=== PATIENT | male | born 1960 | race Caucasian/White ===

== ENCOUNTER 2023-01-12 06:35 | Day surgery (SDC) | payer BC, SELFPAY ==
[2023-01-12] VITALS (7 sets, daily range): BP systolic 103–120; BP diastolic 68–82; PULSE 53–67; RESP 16–18; TEMP 36.2–36.7; O2SAT 93–98; BMI 35.7
[2023-01-12] MEDS: Lactated Ringers 1,000 ML 15 ML IV (07:21)
--- NOTE | 2023-01-12 07:27 | DCINST_ITS ---
Discharge Instructions Diet Discharge Diet: No restrictions Follow Up Care Please Follow Up With: Hemal Judd MD Test Results: Test results from this visit will be discussed in further detail at your follow- up appointment, if applicable. Discharge Plan Admission Primary Reason for Your Visit: Placement of gold markers and spacer gel Attending Provider: Hemal Judd Primary Care Provider: Juan Meyer Discharge Orders/Prescriptions Prescriptions: New ciprofloxacin HCl [Cipro] 500 mg tablet 500 mg PO BID Qty: 10 0RF No Action allopurinol 100 mg tablet 100 mg PO DAILY multivitamin Tablet 1 tab PO DAILY Referrals / Follow Up: Juan Meyer MD [Primary Care Provider] - Hemal Judd MD [Med Staff - Active Staff] - Disposition Disposition (needs filled in before D/C Order can be placed): Home, Self Care
--- NOTE | 2023-01-12 07:27 | PCM.HP.STD ---
HPI - General General Date of Service: 01/12/23 Chief Complaint: Prostate cancer HPI Narrative JASON PANCHAL, is a 62 M who presents for placement of gold markers and spacer gel for prostate cancer he is planning to have radiation treatment [facility] Medical History (Updated 01/05/23 @ 10:17 by Eva Miller) Bilateral carpal tunnel syndrome Cervical vertebral fusion Elevated PSA Generalized osteoarthritis of multiple sites Gout Gout, arthropathy History of stress test Injury of head and neck Non-smoker Thrombocytopenia Wears glasses Home Medications allopurinol 100 mg tablet 100 mg PO DAILY 10/29/22 [History Last Taken Unknown] multivitamin 1 tab PO DAILY 10/29/22 [History Last Taken Unknown] ciprofloxacin HCl 500 mg tablet (Cipro) 500 mg PO BID #10 tabs 01/12/23 [Rx Last Taken Unknown] Allergy/AdvReac Type Severity Reaction Status Date / Time No Known Drug Allergies Allergy Other Verified 01/12/23 06:58 Family History Mother Asthma COPD (chronic obstructive pulmonary disease) Hypertension Father Myocardial infarction CAD (coronary artery disease) Cardiac disorder Grandfather COPD (chronic obstructive pulmonary disease) Surgical History History of carpal tunnel surgery History of vasectomy Social History household members: spouse Smoking Status: Never smoker alcohol intake: never substance use type: does not use Vital Signs Vital Signs Vital Signs: 01/12/23 06:59 01/12/23 06:59 Temperature 97.3 F L Temperature Source Temporal Pulse Rate 57 L Respiratory Rate 16 Respiratory Pattern Normal Blood Pressure 119/82 H Blood Pressure Mean 94 Blood Pressure Source Monitor Blood Pressure Position Semi-Fowlers Blood Pressure Location Left Arm Pulse Ox 96 Oxygen Delivery Method Room Air Weight Weight: 109.769 kg Body Mass Index (BMI) 35.7
[2023-01-12] MEDS: Cefazolin 2 GM in 0.9% Normal Saline 100 ML IV (08:43)
--- NOTE | 2023-01-12 08:55 | OP.PCM_ITS ---
Report of Operation Date of Procedure: 01/12/23 Pre-Operative Diagnosis: Prostate cancer Post-Operative Diagnosis: The same Surgery/Procedure Performed:: Placement of gold markers and spacer gel matrix for radiation therapy Description of Surgical Findings:: In the preoperative area I reviewed with the patient how the procedure is done we talked about the risk of the procedure including the risk of infection, bleeding, migration of the spacer gel, the patient is planning to have radiation to the prostate he understands that the spacer gel has demonstrated benefit in reducing the risk of toxicity from the ration radiation to the rectum but there is no guarantees that this spacer gel will prevent any serious complications or toxicity to the rectum or bowels. After reviewing this with the patient and his family organ to proceed with placement of a spacer gel matrix. The penis and testicles were prepped and draped in usual sterile fashion, ultrasound probe was placed into the rectum and biplanar ultrasound was performed on the prostate. Identified the base mid and apex of the prostate identified the transition zone prostate. Then using a needle the first gold wheel blocker and polisher was placed into the right base of the prostate, the second gold wheel blocker and polisher was placed in the left base of the prostate, and the third core marker was placed in the right apex of the prostate after all 3 markers were placed the placement of the markers were confirmed by ultrasonography. Patient was taken back to the operating room after smooth induction of anesthesia he was placed supine on the table. The genitals and perineum were prepped and draped in usual sterile fashion. I then introduced a biplanar ultrasound probe into the rectum and performed ultrasonography and identified the Denonvilliers' fascia the prostate mid base and apex and seminal vesicles. The spacer gel mix was then prepared on the back table per manufactures instruction. Under ultrasound guidance in the midline perineum a bevel needle down we advanced through the perineum below the prostate into the space of Denonvilliers' fascia. This space which could be identified by ultrasound with a bright white layer between the prostate and the rectum. I then injected a puff of normal saline to identify the space further. After I confirmed that the needle was in the correct space in the mid prostate and the space of Denonvilliers' fascia between the rectum and the prostate. Then over the course of 15 seconds the gel matrix was injected slowly there was nice separation between the prostate and the rectum at the gel matrix was injected. The position of the gel matrix was confirmed by ultrasound. Then the injection needle was removed intact. Patient's perineum was cleaned patient was taken out of stirrups and then taken back to the PACU in good condition.
== END 2023-01-12 10:38 | disposition home or self-care (01) ==
PROVIDERS: PCP Family Medicine; Visit Provider Urology
PROC: (CPT 55874; principal; 2023-01-12 08:25)
DX: C61 Malignant neoplasm of prostate (principal); M10.9 Gout, unspecified; Z98.52 Vasectomy status
CPT/HCPCS: 55876; 00400; J7120; J2405

== ENCOUNTER → 2023-01-17 | Outpatient (CLI) | payer BC, SELFPAY ==
--- NOTE | 2023-01-17 11:11 | MRI_ITS ---
STUDY: MR PELVIS WITH T WITHOUT CONTRAST REASON FOR EXAM: Male, 62 years old. int risk prostate CA, eval disease extent -- after space OAR for XRT planning TECHNIQUE: Standardized fat and water weighted pulse sequences were obtained in all 3 orthogonal planes, pre-and post contrast administration. IV 23 cc clariscan was administered for the contrast portion of the examination. COMPARISON: CT 11/18/2022 FINDINGS: Normal urinary bladder. Normal visualized small intestine. Normal visualized colon. Hyperintense collection between the prostate and rectum as seen on image 10 of series 4, likely iatrogenic. There is no pelvic fluid. There is no pelvic mass lesion or lymphadenopathy. The prostate measures 3.4 x 4.4 x 3.9 cm (AP by transverse by craniocaudal). Mildly hypointense nodule of the left side of the transitional zone measures 2.4 x 2.2 cm and appears to cross midline on image 16 of series 8. Mild contrast enhancement of the nodule on image 30 of series 5 with restricted diffusion evident on image 18 of series 600. Lesion likely correlates to patient''s known prostate cancer. Mildly enlarged lymph node adjacent to the left psoas muscle with short axis measuring 1.3 cm and smaller lymph nodes in the lower retroperitoneum between the aorta and IVC identified on images 6-8 on series 3 with enhancement of the dominant lymph node on image 7 of series 11. There is also a mildly enlarged iliac chain lymph node with short axis measuring 9 mm on image 14 series 3 and series 11, also demonstrating contrast enhancement. Normal visualized pelvic arteries. Normal osseous structures. Right inguinal fat-containing hernia. MRI/Pelvis W/WO Contrast IMPRESSION: 1. Left transitional zone nodule likely correlating to patient''s known prostate cancer. 2. Mild enlargement of lower retroperitoneal and left iliac chain lymph nodes with mild contrast enhancement. Findings are indeterminate but suspicious for sarah metastasis. Recommend additional evaluation with PMSA PET scan. The lymph nodes are likely below size limitations for percutaneous biopsy. 3. Amorphous fluid between the rectum and prostate, likely iatrogenic. 4. Right inguinal fat-containing hernia. Electronically Signed: Boni Hull (Brooks), at 9:16 EDT ,
[2023-01-17 11:41] LABS: EGFR FINGERSTICK > 60.0000 mL/min (>60)
== END | disposition home or self-care (01) ==
LOC: MRI 11:04
PROVIDERS: PCP Family Medicine; Referring Provider Student in an Organized Health Care Education/Training Program; Visit Provider Student in an Organized Health Care Education/Training Program
DX: C61 Malignant neoplasm of prostate (principal)
CPT/HCPCS: 72197; A9575